=== PATIENT | male | born 1995 | race African-American/Black ===

== ENCOUNTER → 2020-04-22 | Outpatient (CLI) | payer OTHER | LOC: COL.RAD 12:05 | DX: Q62.11 Congenital occlusion of ureteropelvic junction (principal); Q62.39 Other obstructive defects of renal pelvis and ureter | CPT/HCPCS: A9562; J1940 ==

== ENCOUNTER 2020-05-13 08:11 | Inpatient (IN) | payer OTHER ==
[~2020-05-13] VITALS: Ht 193 cm; Wt 110.8 kg
[2020-06-05] VITALS (12 sets, daily range): BP systolic 130–161; BP diastolic 65–92; PULSE 80–122; TEMP 97.9–98.8
--- NOTE | 2020-06-05 07:49 | NUR ---
Patient arrived to [facility] [place] [facility] for admission at 0700. He is alert and oriented. He ambulates with steady gait. Procedure is confirmed. He denies any questions and verbalizes understanding. Breath sounds are clear bilaterally to auscultation. Clear S1S2 heart tones are heard with regular rate noted. +2 radial pulses bilaterally. Denies pain, numbness, or tingling. PERRLA. Pre-op medications given. PIV started in right hand with x1 attempt and without complication. Labs are drawn. Patient is taken to PACU For a block with anesthesia, Surinder Gan CRNA.
--- NOTE | 2020-06-05 15:31 | NUR ---
Patient resting in bed. He has done well post op. Patient pain rating was a 10/10. Eras protocol followed, patient pain a 7/10 after ultram. Munoz to DD with adequate pale yellow urine output. Ivf per orders. He is tolerating clears, denies nausea. Scds ble. Abdomen soft, robotic lap site x6.
--- NOTE | 2020-06-05 16:15 | NUR ---
Dna Analyst met with patient to discuss discharge planning. 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 Patient receives medications and primary care from [facility]. Patient is not and does not have children. Patient's mother, Florencio (ph#[phone]) lives in [place] and his sister, Dianne (ph#[phone]) lives in [place]. Patient does not use any DME and plans to return home at discharge. Patient states he has transportation arrangements made for discharge.
--- NOTE | 2020-06-05 16:45 | NUR ---
Urology rounded, Gregg Cantor concerned with tachycardia. Hospitalist consulted. Yolanda Tillman at bedside. Ivf per orders. Patient pain a 6/10 after Ultram. Ekg orders for concerns of chest pain. I did discuss with pain robotic surgery & gas pain. I encouraged activity & He was not yet ready to get up.
--- NOTE | 2020-06-05 17:45 | NUR ---
rounded. Plan of care reviewed. Patient feeling better up in chair, he denies the need for anxiety medication at this time, but did request pain medication. He is tolerating clears without nausea. Munoz continues to drain adequate pale yellow urine. Tele on.
--- NOTE | 2020-06-05 20:45 | NUR ---
Pt was having quite a bit of pain at and pt was given pain medication at this time. Pt also was very anxious at this time. Alie the hospitalist was contacted at this time and she ordered for him to have something for anxiety. Afer giving hiim the anxiety medication pt heart rate is within normal limits and pt stated that he feels better. He has his call light within reach.
[2020-06-06 00:19] VITALS: BP 150/61; PULSE 92; TEMP 98
[2020-06-06 04:04] VITALS: BP 132/66; PULSE 84; TEMP 98.3
--- NOTE | 2020-06-06 06:25 | NUR ---
Pt currently resting in bed. Pt has no complaints of pain at this time. Once the pain stopped pt was able to rest well during the night. Pt has his call light within reach.
--- NOTE | 2020-06-06 07:30 | NUR ---
Munoz removed per order, catheter intact, patient tolerated procedure well. Patient denied pain otherwise and denies further needs at this time, call light within reach.
[2020-06-06 07:39] LABS: HEMATOCRIT 40.1 % (42.0-52.0); HEMOGLOBIN 13.1 g/dl (13.5-18.0)
[2020-06-06 08:06] VITALS: BP 155/67; PULSE 77; TEMP 98.6
[2020-06-06 12:15] VITALS: BP 145/70; PULSE 89; TEMP 97.6
--- NOTE | 2020-06-06 14:45 | NUR ---
Discharge teaching completed. Discussed follow up appointment, discharge medication, and discharge instructions. Questions asked and answered. Patient dressed and verified all personal belongings were gathered. Patient escorted to ED entrance where he entered a private vehicle.
== END 2020-06-06 14:49 | disposition home or self-care (01) | DRG 661 ==
LOC: INPTSU 06-05 06:48 → SURG 06-05 08:30
PROVIDERS: Physician Assistant; ADMIT Urology
PROC: 0TT04ZZ Resection of Right Kidney, Percutaneous Endoscopic Approach (ICD-10-PCS; principal; 2020-06-05 08:30)
PROC: 8E0W4CZ Robotic Assisted Procedure of Trunk Region, Percutaneous Endoscopic Approach (ICD-10-PCS; 2020-06-05 08:30)
DX: N13.5 Crossing vessel and stricture of ureter without hydronephrosis (principal); R07.89 Other chest pain; R00.0 Tachycardia, unspecified
CPT/HCPCS: 99223; 99231-AI; A4314; J0330; J0360; J1100; J1170; J1650; J1885; J2250; J2405; J2704; J2795; J3010; J7120

== ENCOUNTER → 2020-06-02 | Outpatient (CLI) | payer OTHER | LOC: COL.LAB 10:13 | DX: Q62.39 Other obstructive defects of renal pelvis and ureter (principal); Q62.11 Congenital occlusion of ureteropelvic junction ==